=== PATIENT | female | born 1970 | race Two or more races ===

== ENCOUNTER 2025-05-16 13:38 | Emergency (ER) | payer MEDICAID, SELFPAY ==
[2025-05-16] VITALS (8 sets, daily range): BP systolic 99–129; BP diastolic 57–88; PULSE 65–93; RESP 15–18; TEMP 36.6–36.7; O2SAT 98–100; BMI 30.4
--- NOTE | 2025-05-16 14:13 | PD.EDRME ---
Rapid Medical Screening Exam RME Arrival date/time: 05/16/25 13:38 54-year-old female with no known medical history presents to the emergency room with a chief complaint of weakness and a low hemoglobin level. Patient states she was sent over by her primary care provider for hemoglobin of 6.5. I have greeted and performed a focused initial assessment of this patient. A comprehensive ED assessment and evaluation of the patient, analysis of all test results, and completion of the medical decision making process will be conducted by additional ED providers. Chief Complaint: General Adult/Misc Complain Time Seen by Provider: 05/16/25 13:48 Vital signs: Vital Signs Temperature 97.9 F 05/16/25 13:48 Pulse Rate 93 05/16/25 13:48 Respiratory Rate 18 05/16/25 13:48 Blood Pressure 108/67 05/16/25 13:48 Pulse Oximetry (%) 98 05/16/25 13:48 Oxygen Delivery Method Room Air 05/16/25 13:48 Vital signs reviewed by provider: Yes
[2025-05-16 14:30] LABS: Basophils # (Auto) 0.0 Thou/mm3 (0.0-0.2); Basophils % (Auto) 1 % (0-2.5); Eosinophils # (Auto) 0.1 Thou/mm3 (0.0-0.5); Eosinophils % (Auto) 2 % (0-10); Hematocrit 25.0 % (36.0-46.0); Immature Granulocytes Auto 0.01 Thou/mm3 (0.00-0.00); Lymphocytes # (Auto) 1.0 Thou/mm3 (1.0-4.8); Lymphocytes % (Auto) 29 % (10-50); Mean Corpuscular HGB Conc 28.8 g/dl (31.0-37.0); Mean Corpuscular Hemoglobin 21.2 pg (25.0-35.0); Mean Corpuscular Volume 74 fL (80-100); Monocytes # (Auto) 0.3 Thou/mm3 (0.0-0.8); Monocytes % (Auto) 8 % (0-12); Neutrophils # (Auto) 2.0 Thou/mm3 (1.8-7.7); Neutrophils % (Auto) 60 % (37-80); Nucleated Red Blood Cell # 0.00 Thou/mm3 (0.00-0.00); Nucleated Red Blood Cell % 0 /100 WBC (0); Platelet Count 145 Thou/mm3 (140-440); RDW Standard Deviation 45.4 fL (36.4-46.3); Red Blood Count 3.40 Miln/mm3 (4.00-5.20); White Blood Count 3.4 Thou/mm3 (3.6-11.0)
[2025-05-16 14:35] LABS: Hemoglobin 7.2 g/dL (12.0-16.0)
[2025-05-16 14:48] LABS: Alanine Aminotransferase 39 U/L (10-49); Albumin, Serum 4.0 gm/dL (3.5-5.0); Albumin/Globulin Ratio 1.3 (1.2-2.2); Alkaline Phosphatase 94 U/L (46-116); Anion Gap 11 (7-16); Aspartate Amino Transferase 59 U/L (0-34); BUN/Creatinine Ratio 19 Ratio (12-20); Bilirubin,Total 1.2 mg/dL (0.3-1.2); Blood Urea Nitrogen 17 mg/dL (9-23); Calcium 9.2 mg/dL (8.3-10.6); Calcium (Corrected) 9.2 mg/dL (8.5-10.1); Carbon Dioxide 21.0 mMol/L (20.0-31.0); Chloride 111 mMol/L (98-107); Creatinine (Component) 0.9 mg/dL (0.6-1.3); Estimated Creatinine Clearance 79.5 mL/min (>60); Globulin 3.1 gm/dL (2.3-3.5); Glucose 159 mg/dL (74-106); Osmolality,Calculated 289 (275-295); Potassium 4.2 mMol/L (3.4-5.1); Sodium 143 mMol/L (136-145); Total Protein 7.1 gm/dL (5.7-8.2); eGFR > 60 See Note
[2025-05-16 15:56] LABS: INR 1.2 (0.9-1.3); Partial Thromboplastin Time 25.2 Seconds (22.0-36.0); Prothrombin Time 12.8 Seconds (9.0-12.2)
--- NOTE | 2025-05-16 16:52 | EKG_ITS ---
[facility] Test Date: 2025-05-16 Pat Name: MARTINEZ RUVALCABA Department: Room: - Gender: Female Machine Turner: : 1970 Requested By: Shawnee Ludwig Order Number: [id number] Reading MD: Shawnee Ludwig Measurements Intervals [place] Rate: 65 P: 44 MD: 168 QRS: -14 QRSD: 97 T: 9 QT: 426 QTc: 445 Interpretive Statements SINUS RHYTHM LOW QRS VOLTAGE IN PRECORDIAL LEADS [QRS DEFLECTION < 1.0 mV IN CHEST LEADS] INFERIOR MYOCARDIAL INFARCTION , PROBABLY OLD [40+ ms Q WAVE AND/OR ST/T ABNORMALITY IN II/aVF] Compared to ECG 12/09/2023 11:02:45 No significant changes /store/S0/[id number]/ecg/[id number].pdf
--- NOTE | 2025-05-16 17:07 | EDNOTE_ITS ---
ED General RME/HPI General Chief complaint: General Adult/Misc Complain Stated complaint: SENT BY [facility] TO GET BLOOD Time Seen by Provider: 05/16/25 13:48 Arrival date/time: 05/16/25 13:38 54-year-old female with a history of anemia, hypertension diabetes presents to the ED at the request of her primary care physician who sent her over here for a blood transfusion due to hemoglobin of 6.9. Patient states she is asymptomatic at this point in time. She states she has had recent stomach issues and was given some medication that she was taking 3 times a week. This medication is unknown. She denies any recent illness with fever, chills, fatigue or weakness, nausea or vomiting, diarrhea or abdominal pain. She denies hematemesis, but states she has had recent stomach issues and was given some medication that she was taking 3 times a week that caused her stools to become dark. This medication is unknown. She also states she has an appointment with a specialist on June 03. RME / HPI RME / HPI narrative: 05/16/25 13:38 54-year-old female with no known medical history presents to the emergency room with a chief complaint of weakness and a low hemoglobin level. Patient states she was sent over by her primary care provider for hemoglobin of 6.5. I have greeted and performed a focused initial assessment of this patient. A comprehensive ED assessment and evaluation of the patient, analysis of all test results, and completion of the medical decision making process will be conducted by additional ED providers. Related Data Previous Rx's ?Medication ?Instructions ?Recorded albuterol sulfate 90 mcg/actuation 2 puff inhalation Q 6H PRN 11/05/22 aerosol inhaler (Ventolin HFA) shortness of breath or wheezing #8.5 grams ferrous sulfate 325 mg (65 mg 325 mg PO BID #60 tabs 1 12/14/22 iron) tablet docusate sodium 100 mg capsule 100 mg PO BID #40 caps 12/11/23 (Colace) hydrocodone 5 mg-acetaminophen 325 1 tab PO Q6H PRN pa in (scale score 12/11/23 mg tablet 7-10) #15 tabs ibuprofen 600 mg tablet 600 mg PO Q8H PRN pain (scal e 12/11/23 score 4-6) #15 tabs Allergies Allergy/AdvReac Type Severity Reaction Status Date / Time No Known Allergies Allergy Verified 05/16/25 13:43 Review of Systems Review of Systems Systems Reviewed: All systems reviewed, normal except as documented Past Medical History Past Medical History NEUROLOGIC: Negative Seizures CARDIAC: Positive Hypercholesterolemia and Hypertension; Negative Cardiac Disorders or Congestive Heart Failure RESPIRATORY: Negative Chronic Obstructive Pulmonary Disease (COPD) or Asthma GENITOURINARY: Negative Renal Disease ENDOCRINE: Positive Diabetes Mellitus Type 2; Negative Diabetes Mellitus Type 1 HEMATOLOGIC: Negative Sickle Cell Disease OTHER HISTORY: Positive Anesthesia Reactions; Negative Blood Transfusions Social History SMOKING STATUS: Never smoker SUBSTANCE USE: does not use ED Exam Narrative Physical exam: Alert and oriented, very pleasant 54-year-old [place]-speaking female, no acute distress. Lungs are clear, regular rate without murmurs, abdomen is soft and n ontender, moves all extremities well. Skin is warm, normal color and dry. Course Course Course Narrative: CBC reveals a a mildly low white count of 3.4, low RBCs of 3.4, low hemoglobin and hematocrit of 7.2/25.0 with decreased MCV/MCH/MCHC of 74/21.2/28.8. With normal platelet level of 145. Coags are normal with the exception of a mildly elevated PT of 12.8. CMP reveals a chloride of 111, elevated glucose of 159, mildly elevated AST of 59 with a normal ALT. Blood bank tests reveal low positive blood with positive antibody. 1 unit of PRBCs ordered and given. Patient tolerated procedure well. Post transfusion H&H ordered. Quality Measures none Orders Category Date Time Status Cut Off Sawyer Log STAT Care 05/16/25 16:52 Active EKG (ED ONLY) *Do not use* NOW Care 05/16/25 16:52 Completed Insert IV STAT Care 05/16/25 16:52 Active Post Transfusion H&H X1 Care 05/16/25 22:54 Active Transfuse,blood/blood products ONCE Care 05/16/25 16:52 Active EKG (ED Only) Stat Exams 05/16/25 16:52 Draft Antibody Identification Stat Lab 05/16/25 14:20 Completed CBC Stat Lab 05/16/25 14:20 Completed CMP [Comprehensive Metabolic Panel] Stat Lab 05/16/25 14:20 Completed PT [Prothrombin Time with INR] Stat Lab 05/16/25 14:20 Completed PTT [Partial Thromboplastin Time] Stat Lab 05/16/25 14:20 Completed Type and Screen Stat Lab 05/16/25 14:20 Completed prbc [Red Blood Cells] Stat Lab 05/16/25 14:20 Completed Acetaminophen Tab [Tylenol Tab] Med 05/16/25 16:52 Discontinued 650 mg PO X1 ONE DiphenhydrAMINE [Benadryl] Med 05/16/25 16:52 Discontinued 25 mg PO X1 ONE Vital Signs Vital signs: Vital Signs Temperature 97.9 F 05/16/25 13:48 Pulse Rate 93 05/16/25 13:48 Respiratory Rate 18 05/16/25 13:48 Blood Pressure 108/67 05/16/25 13:48 Pulse Oximetry (%) 98 05/16/25 13:48 Oxygen Delivery Method Room Air 05/16/25 13:48 Discharge Plan Plan Patient Disposition: HOME (Self Care) Discharge Disposition comment: Stable Prescriptions/Referrals Prescriptions/Med Rec: No Action albuterol sulfate [Ventolin HFA] 90 mcg/actuation HFA aerosol inhaler 2 puff inhalation Q6H PRN (Reason: shortness of breath or wheezing) Qty: 8.5 0RF docusate sodium [Colace] 100 mg capsule 100 mg PO BID Qty: 40 0RF ibuprofen 600 mg tablet 600 mg PO Q8H PRN (Reason: pain (scale score 4-6)) Qty: 15 0RF hydrocodone-acetaminophen 5-325 mg tablet 1 tab PO Q6H MDD 4 PRN (Reason: pain (scale score 7-10)) Qty: 15 0RF ferrous sulfate 325 mg (65 mg iron) tablet 325 mg PO BID Qty: 60 0RF Referrals: No Primary/Family,Physician [Primary Care Provider] - In 1 week Problem List Clinical Impression: Anemia, Transfusion of blood during current hospitalization Patient/Caregiver Discharge Instructions Other Activity Instructions:: Initial hemoglobin 7.2. Posttransfusion hemoglobin is available on the patient portal. Instructions are included with this discharge packet. Education Materials: ED Anemia Type Not Specified Additional Instructions: Elaine un seguimiento con walker medico de atencion primaria en 24 a 48 horas. Regresar al departamento de emergencias por cualquier sintoma nuevo o que empeore. Print Language: [place] Stand Alone Forms: [employer] Award Info., Patient Portal Info Letter PA/STENO POOL SUPERVISOR Supervising Physician PA/STENO POOL SUPERVISOR Supervising Physician: Dr. Hickey [facility] Narrative [facility] hospital course: 54-year-old female with a history of anemia, hypertension diabetes presents to the ED at the request of her primary care physician who sent her over here for a blood transfusion due to hemoglobin of 6.9. Patient states she is asymptomatic at this point in time. She states she has had recent stomach issues and was given some medication that she was taking 3 times a week. This medication is unknown. She denies any recent illness with fever, chills, fatigue or weakness, nausea or vomiting, diarrhea or abdominal pain. She denies hematemesis, but states she has had recent stomach issues and was given some medication that she was taking 3 times a week that caused her stools to become dark. This medication is unknown. She also states she has an appointment with a specialist on June 03. Alert and oriented, very pleasant 54-year-old [place]-speaking female, no acute distress. Lungs are clear, regular rate without murmurs, abdomen is soft and nontender, moves all extremities well. Skin is warm, normal color and dry. CBC reveals a a mildly low white count of 3.4, low RBCs of 3.4, low hemoglobin and hematocrit of 7.2/25.0 with decreased MCV/MCH/MCHC of 74/21.2/28.8. With normal platelet level of 145. Coags are normal with the exception of a mildly elevated PT of 12.8. CMP reveals a chloride of 111, elevated glucose of 159, mildly elevated AST of 59 with a normal ALT. Blood bank tests reveal low positive blood with positive antibody. 1 unit of PRBCs ordered and transfused. Patient tolerated procedure well. Post transfusion H&H ordered and pending. Procedures done or offered: 1 unit of PRBCs transfused. Clinical Information Provided by family Medical Records Reviewed [facility] Meds/Rx Considered, not Ordered None Labs/Rad/Tests considered, not Ordered None Chronic Illness/Social Conditions which may negatively complicate care or outcome(s)-explain: None or not applicable EKG EKG Interpretation narrative: Sinus rhythm with no T wave abnormality or ST changes. Lab Interpretation Labs: see narrative above Imaging Imaging interpretation: none Medication Administration(s) Medication Administration History Discontinued Medications Acetaminophen (Acetaminophen 325 Mg Tablet) 650 mg PO X1 ONE Stop: 05/16/25 16:53 Last Admin: 05/16/25 17:23 Dose: 650 mg Documented By: GM Diphenhydramine HCl (Diphenhydramine 25 Mg Capsule) 25 mg PO X1 ONE Stop: 05/16/25 16:53 Last Admin: 05/16/25 17:23 Dose: 25 mg Documented By: GM Tylenol 650 mg and Benadryl 25 mg p.o. given prior to transfusion. Diagnosis Differential diagnosis: Iron deficiency anemia, acute blood loss anemia, myeloproliferative disorde Most likely dx, and/or detailed dx discussion: Anemia, pending appointment with specialist. Dispositon Disposition: Discharge Home
[2025-05-16] MEDS: ACETAMINOPHEN 325 MG TABLET 650 MG PO (17:23)
[2025-05-16 23:54] LABS: Hematocrit 26.0 % (36.0-46.0)
[2025-05-17 00:02] LABS: Hemoglobin 7.8 g/dL (12.0-16.0)
== END 2025-05-16 23:43 | disposition home or self-care (01) ==
PROVIDERS: Nurse Practitioner Family; Physician Assistant; Emergency Provider Emergency Medicine
DX: D64.9 Anemia, unspecified (principal); R94.31 Abnormal electrocardiogram [ECG] [EKG]; I10 Essential (primary) hypertension; E78.00 Pure hypercholesterolemia, unspecified
CPT/HCPCS: 36415; 36430; 80053; 85014; 85018; 85025; 85610; 85730; 86850; 86870; 86900; 86901; 86923; 99285; P9016; A9270